=== PATIENT | male | born 1995 | race Caucasian/White ===

== ENCOUNTER 2020-05-23 12:55 | Emergency (ER) | payer OTHER ==
[~2020-05-23] VITALS: Ht 180.3 cm; Wt 104.3 kg
[~2020-05-23 12:55] MED LIST: IBUPROFEN 600600 M1 PO; KETOCONAZOLE60 GM TP; NOHOMEMEDICATIONS
[2020-05-23 13:58] VITALS: BP 133/78
== END 2020-05-23 13:59 | disposition home or self-care (01) ==
LOC: M.ERS 12:55
DX: Z11.59 Encounter for screening for other viral diseases (principal); J45.909 Unspecified asthma, uncomplicated; Z90.49 Acquired absence of other specified parts of digestive tract